=== PATIENT | female | born 2000 | race Two or more races ===

== ENCOUNTER → 2024-03-03 14:50 | Outpatient (REF) | payer BC, SELFPAY | LOC: RAD 14:50 | PROVIDERS: ATTENDING PHYSICIAN Chiropractor; FAMILY PHYSICIAN Family Medicine | DX: M99.03 Segmental and somatic dysfunction of lumbar region (principal); S23.41XA Sprain of ribs, initial encounter | CPT/HCPCS: 71101; 72052; 72110 ==